=== PATIENT | female | born 1960 | race Native Hawaiian/Other Pacific Islander ===

== ENCOUNTER 2018-02-22 17:47 | Emergency (ER) | payer OTHER ==
[~2018-02-22] VITALS: Ht 162.6 cm; Wt 74.4 kg
[2018-02-22 19:57] LABS: PLATELET COUNT 246 K/uL (152-353)
[2018-02-22 20:02] LABS: POTASSIUM 3.8 mmol/L (3.6-5.2)
[2018-02-22 22:00] VITALS: BP 137/72; TEMP 98.5
== END 2018-02-22 22:00 | disposition home or self-care (01) ==
LOC: ED 17:47
PROVIDERS: Emergency Medicine
DX: S09.90XA Unspecified injury of head, initial encounter (principal); R00.0 Tachycardia, unspecified; I44.7 Left bundle-branch block, unspecified; W01.10XA Fall on same level from slipping, tripping and stumbling with subsequent striking against unspecified object, initial encounter
CPT/HCPCS: 80053; 81000; 85027; 87077; 87086; 87088; 87186; 93005; 96372; 99283; J1815

== ENCOUNTER 2018-02-23 20:53 | Emergency (ER) | payer OTHER ==
[~2018-02-23] VITALS: Ht 162.6 cm; Wt 74.4 kg
[2018-02-23 21:55] LABS: PLATELET COUNT 220 K/uL (152-353)
[2018-02-23 22:05] LABS: POTASSIUM 3.3 mmol/L (3.6-5.2)
[2018-02-23 23:33] VITALS: BP 146/88; TEMP 97.8
== END 2018-02-23 23:46 | disposition home or self-care (01) ==
LOC: ED 20:53
DX: N39.0 Urinary tract infection, site not specified (principal); E11.65 Type 2 diabetes mellitus with hyperglycemia
CPT/HCPCS: 36415; 80053; 81000; 83036; 85027; 96365; 96372; 99284; J0696; J1815

== ENCOUNTER 2019-11-30 18:18 | Inpatient (IN) | payer OTHER ==
[2019-11-30] VITALS (11 sets, daily range): BP systolic 121–162; BP diastolic 66–94; TEMP 99.5
[~2019-11-30] VITALS: Ht 162.6 cm; Wt 54.0 kg
[2019-11-30 19:13] LABS: PLATELET COUNT 251 K/uL (152-353)
[2019-11-30 19:18] LABS: POTASSIUM 4.3 mmol/L (3.6-5.2)
[2019-11-30 19:33] LABS: PARTIAL THROMBOPLASTIN TIME 25.6 SECONDS (24.5-33.6)
[2019-12-01 03:16] VITALS: BP 143/70; TEMP 97.6; Ht 162.6 cm; Wt 54.0 kg
[2019-12-01 04:00] VITALS: BP 157/79; TEMP 98.2
[2019-12-01 04:15] LABS: PLATELET COUNT 278 K/uL (152-353)
[2019-12-01 04:37] LABS: POTASSIUM 4.4 mmol/L (3.6-5.2)
[2019-12-01 08:00] VITALS: BP 161/83; TEMP 98.1
[2019-12-01 12:00] VITALS: BP 141/81; TEMP 97.8
[2019-12-01 12:51] LABS: POTASSIUM 4.6 mmol/L (3.6-5.2)
[2019-12-01 16:00] VITALS: BP 144/78; TEMP 97.2
== END 2019-12-01 22:14 | disposition short-term general hospital (02) | DRG 637 ==
LOC: ED 18:22 → MED/SURG 23:03
PROVIDERS: Internal Medicine; ADMIT Family Medicine
DX: E11.10 Type 2 diabetes mellitus with ketoacidosis without coma (principal); U07.1 COVID-19; R41.82 Altered mental status, unspecified; R79.1 Abnormal coagulation profile
CPT/HCPCS: 36415; 36600; 51702; 80048; 80053; 80307; 81000; 81002; 82550; 82553; 82805; 82962; 83605; 83880; 84484; 85027; 85379; 85610; 85730; 87040; 87502; 87635; 87651; 93005; 94760; 96360; 96361; 96365; 96374; 96375; 99284; 99285; G2023; J0456; J1100; J1650; J1815; J2543; J2930; J3490; Q9963; U00003